=== PATIENT | male | born 2000 | race Caucasian/White ===

== ENCOUNTER 2020-03-29 14:22 | Emergency (ER) | payer OTHER, SELFPAY ==
[2020-03-29 14:32] VITALS: BP 144/85; PULSE 77; RESP 12; TEMP 36.5; O2SAT 100
--- NOTE | 2020-03-29 14:41 | ED.GENADULT ---
HPI - General Adult General Chief complaint: Dizziness Stated complaint: dizzy Time Seen by Provider: 03/29/20 14:41 Source: patient and RN notes reviewed Mode of arrival: ambulatory Limitations: no limitations History of Present Illness HPI narrative: 19-year-old male presents with complaints of intermittent dizziness that has been going on for the past 3-4 weeks. Symptoms increased today. No treatment. No exacerbating factors. Remy says first episode he was just standing, 2nd episode he was driving, and this morning he had awaken when dizziness started and lasted for approximately 30 minutes. Says he feels as if his head is sitting behind him at least 1-3 feet when dizziness starts. No dizziness at this time. Relieving factors is sitting still. Denies ear pain, ear itching, ear trauma, trauma to head, syncopal episodes, altered vision, altered speech, confusion, or seizure activity. Denies headache, numbness or tingling in extremities. Denies chest pain or dyspnea. Denies URI symptoms, fever, or chills. Tolerating p.o. intake well. Remains active. The patient reports he have not been diagnosed with COVID-19. The patient reports he is not waiting for the results of a COVID-19 lab test. The patient reports he do not have fever, chills, weakness, fatigue, or myalgia. The patient reports he do not have a new or worsening cough. The patient reports he do not have any rhinorrhea, congestion, loss of taste, sore throat, nausea, vomiting, abdominal pain, and diarrhea. Denies recent traveling. Denies concerns for COVID-19 or exposures been home with limited outdoor exposure except for essential household needs and return home. At this time, patient is not suspected of having COVID-19. Some parts of this dictation were generated by voice recognition software and may contain typographical and/or grammatical inaccuracies. Related Data Allergies Allergy/AdvReac Type Severity Reaction Status Date / Time No Known Allergies Allergy Verified 03/29/20 14:36 Review of Systems Review of Systems: Narrative: CONSTITUTIONAL: Denies fever, chills, sweats. EYES: Denies visual changes, redness, discharge. ENT: Denies rhinorrhea, congestion, sore throat, otalgia. CARDIOVASCULAR: Denies chest pain, palpitations, edema. RESPIRATORY: Denies dyspnea, wheezing, cough. GASTROINTESTINAL: Denies abdominal pain, nausea, vomiting, diarrhea. GENITOURINARY: Denies dysuria, hematuria, abnormal discharge. SKIN: Denies lesions, itching, drainage. MUSCULOSKELETAL: Denies acute back pain, joint pain, or myalgia. NEUROLOGIC: Denies numbness or focal weakness. Complains of intermittent dizziness. PSYCHIATRIC: Denies anxiety or depression. All systems reviewed & are unremarkable except as noted in HPI and below. PMFSH Past Medical History Medical History (Updated 03/30/20 @ 00:00 by [facility]) No significant past medical history Surgical History Surgical History (Updated 03/29/20 @ 14:55 by EARLINE Holley) No significant past surgical history Family History Family History (Updated 03/29/20 @ 14:58 by EARLINE Holley) Father History of IBS Depression Mother History of abdominal surgery Grandparent Diabetes mellitus Social History Social History (Updated 03/29/20 @ 14:59 by EARLINE Holley) Smoking status: Current every day smoker Tobacco type: e-cigarettes/vaping Alcohol intake: former Alcohol use details: stopped 2018 Substance use: former Substance use type: marijuana Other substance usage details: stopped 2018 Occupation/Education: unemployed Gender identity (if verbalized by the patient): Male Comments At time of signature, agree with nurse past medical, surgical, social, and family history. There is no relevant family history pertinent to the presenting complaint. Exam Narrative: Exam Narrative: GENERAL: This is a well-nourished, well-developed patient, in no apparent d
[2020-03-29 14:54] LABS: Glucose Point of Care 84 (65-105)
[2020-03-29 14:57] VITALS: BP 120/67; BP 125/70; PULSE 78
--- NOTE | 2020-03-29 14:57 | ECG_ITS ---
Measurements Intervals [place] Rate: 78 P: 35 DE: 172 QRS: 38 QRSD: 90 T: 52 QT: 349 QTc: 400 Interpretive Statements SINUS RHYTHM INCOMPLETE RIGHT BUNDLE BRANCH BLOCK BORDERLINE ECG Electronically Signed On 03-29-2020 16:43:14 CDT by Marvin Mar D.O.
== END 2020-03-29 15:13 | disposition home or self-care (01) ==
PROVIDERS: Emergency Provider Nurse Practitioner Family
DX: R42 Dizziness and giddiness (principal); F17.200 Nicotine dependence, unspecified, uncomplicated; I45.10 Unspecified right bundle-branch block
CPT/HCPCS: 82948; 93005; 99213; G0463